=== PATIENT | female | born 1950 | race Caucasian/White ===

== ENCOUNTER 2016-10-22 07:50 | Day surgery (SDC) | payer MEDICARE ==
[~2016-10-22] VITALS: Ht 152.4 cm; Wt 66.5 kg
[~2016-10-22 07:50] MED LIST: APIX5TAB PO; ATEN1TAB75 PO; ATOR1TAB18 PO; CALC600T25 PO; CLON0.5T PO; FLUO40CA PO; FLUT1SPR5 EACH NARE; GABA300C5 PO; HYDR25TA5 PO; POTA-243 PO; PRIN10TA PO; VITA100064 PO; ZANTTAB9 PO
[2016-10-22] MEDS ORDERED: ceFAZolin INJ 1,000 MG VIAL ONE (08:16)
[2016-10-22] MEDS ORDERED: HEPARIN SODIUM - SQ 10,000 UNITS/ML VIAL ONE (08:16)
[2016-10-22] MEDS ORDERED: BUPIVACAINE/EPINEPHRINE 0.5% 50 ML VIAL ONE (08:17)
[2016-10-22] MEDS ORDERED: PROTAMINE SULFATE 50 MG/5 ML VIAL ONE (08:17)
[2016-10-22] MEDS ORDERED: METOPROLOL TARTRATE 25 MG TAB PO PRN (08:30)
[2016-10-22] MEDS ORDERED: CHLORHEXIDINE GLUCONATE 2 % 1 PACK (2 CLOTHS) TOPICAL PRN (08:30)
[2016-10-22] MEDS ORDERED: SODIUM CHLORID 0.9% 500 ML IV PRN (08:30)
[2016-10-22] MEDS ORDERED: INSULIN HUMAN REGULAR 1,000 UNITS/10 ML VIAL SQ PRN (08:30)
[2016-10-22] MEDS ORDERED: LACTATED RINGER'S 1000 ML IV PRN (08:30)
[2016-10-22] MEDS ORDERED: VANCOMYCIN HCL 1000 MG ON-CALL/NS 250 ML IV SCH ×2 (08:30)
[2016-10-22] MEDS ORDERED: POVIDONE IODINE 5% (ANTISEPSIS KIT) 4 APPLICATIONS EACH NARE PRN (08:30)
[2016-10-22 08:43] VITALS: BP 127/52; PULSE 42; RESP 20; TEMP 98.3; O2SAT 98
[2016-10-22 09:06] LABS: AUTOMATED NEUTROPHIL # 6.2 TH/MM3 (1.8-7.7); BASOPHIL # 0.1 TH/MM3 (0-0.2); BASOPHIL % 0.8 % (0.0-2.0); EOSINOPHIL # 0.4 TH/MM3 (0-0.4); EOSINOPHIL % 3.7 % (0.0-4.0); HEMATOCRIT 36.6 % (35.0-46.0); HEMO FLAGS DIFF FINAL; LYMPH % 25.7 % (9.0-44.0); LYMPHOCYTE # 2.6 TH/MM3 (1.0-4.8); MEAN CELL VOLUME 88.6 FL (80.0-100.0); MEAN CORPUSCULAR HGB CONC 32.7 % (32.0-36.0); MONO % 8.7 % (0.0-8.0); NEUT % 61.1 % (16.0-70.0); PLATELET COUNT 229 TH/MM3 (150-450); RED BLOOD COUNT 4.13 MIL/MM3 (4.00-5.30); RED CELL DISTRIBUTION WIDTH 13.5 % (11.6-17.2); WHITE BLOOD COUNT 10.2 TH/MM3 (4.0-11.0)
[2016-10-22 09:15] LABS: APTT (PATIENT) 24.4 SEC (24.3-30.1); INTERNATIONAL NORMALIZED RATIO 0.9 RATIO; PROTHROMBIN TIME - PATIENT 10.2 SEC (9.8-11.6)
[2016-10-22 09:23] LABS: BICARBONATE 25.6 MEQ/L (21.0-32.0); POTASSIUM 3.9 MEQ/L (3.5-5.1)
[2016-10-22] MEDS ORDERED: MIDAZOLAM HCL 2 MG/2 ML VIAL ONE (09:43)
[2016-10-22] MEDS ORDERED: IOHEXOL 300 MG/ML 50 ML BTL (for RAD DIAG) ONE (11:22)
[2016-10-22] MEDS ORDERED: IOHEXOL 300 MG/ML 50 ML BTL (for RAD DIAG) IV ONE (12:00)
[2016-10-22] MEDS ORDERED: KETAMINE HCL 500 MG/5 ML VIAL IV ONE (12:00)
[2016-10-22] MEDS ORDERED: PROPOFOL 200 MG/20 ML AMP IV ONE (12:00)
[2016-10-22] MEDS ORDERED: ePHEDrine/NS 25 MG/5 ML SYR IV ONE (12:00)
[2016-10-22] MEDS ORDERED: SODIUM CHLORID 0.9% 500 ML INJ 500 ML IV ONE (12:00)
[2016-10-22 14:23] VITALS: BP 154/65; PULSE 49; RESP 18; TEMP 97.9; O2SAT 98
[2016-10-22 15:13] VITALS: BP 158/76; PULSE 46; RESP 16; TEMP 97.9; O2SAT 99
--- NOTE | 2016-10-22 16:39 | EKG ---
Date Performed: 10/22/2016 Time Performed: 08:31:08 PTAGE: 65 years EKG: SINUS BRADYCARDIA POSSIBLE RIGHT VENTRICULAR CONDUCTION DELAY NONSPECIFIC T-WAVE ABNORMALIT Y BORDERLINE ECG Compare to prior EKG, previous EKG shows atrial fibrillation. Patient has now conver shannan to Sinus rhythm . PREVIOUS TRACING : 09/07/2015 01.05 DOCTOR: Noble Ayon Interpretating Date/Time 10/22/2016 16:37:36
--- NOTE | 2016-10-24 11:18 | MP ---
cc: TEJA ART M.D. 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 PROCEDURE Aortofemoral arteriogram. SURGEON Teja Art MD ANESTHESIA Local MAC. DESCRIPTION OF THE OPERATIVE PROCEDURE With the patient in the supine position and under IV sedation, the lower abdomen, both groins and thighs were thoroughly prepped with Betadine and draped in a sterile fashion. One gram of vancomycin was administered intravenously and following a protocol time-out, the skin and subcutaneous tissue surrounding the right femoral access site was preemptively infiltrated with 0.5% Marcaine with epinephrine. Utilizing ultrasound guidance, an 18-gauge needle was inserted into the right femoral limb of the aortobifemoral bypass. A J-wire was advanced under fluoroscopic guidance into the right iliac limb and the needle exchanged for a 5-Frisian hemostatic sheath. An Advantage Omni catheter combination was guided into the sub-renal aorta. Utilizing power contrast injection in conjunction with digital C-arm fluoroscopic imaging, complete aortofemoral arteriogram was then accomplished with findings as follows: The "piggyback" aortic anastomosis and aortobifemoral bypass graft were widely patent. The left femoral limb of the bypass graft was a significant diameter mismatch with the anastomosed left common femoral artery. However, the common femoral, bifurcation proximal SFA and profunda did not appear significantly stenosed (despite preoperative duplex suggesting otherwise). On the right side, a focal high-grade stenosis was present within the origin of the SFA. The profunda was quite robust and widely patent. The right superficial femoral artery was diminished in caliber throughout, probably due to the proximal stenosis and resulting distal hypotension within the distal SFA. The popliteal was also smaller in caliber but patent. The anterior tibial was atretic. The tibioperoneal trunk, peroneal and posterior tibial appeared unrestricted with two-vessel perfusion right foot. On the left side, below the femoral bifurcation the SFA and popliteal were normal and unrestricted two-vessel runoff provided by the anterior tibial and posterior tibial to the left foot was documented. The Advantage guidewire was guided over the aortic bifurcation down the left iliac limb of the bypass graft, across the femoral anastomosis into the proximal SFA. A quick-cross catheter was positioned within the proximal SFA. Pullback pressures across the left femoral anastomosis reconfirmed absence of any hemodynamically significant stenosis. Pressure measurements distal, across and proximal to the anastomosis were isosymmetric. The 5-Frisian sheath was removed from the access site and hemostasis achieved with compression. There were no operative complications. The patient returned to the recovery room in stable condition having tolerated the procedure well. Teja Art MD JTS/SSB /4:49 PM /10:56 AM
== END 2016-10-22 18:08 | disposition home or self-care (01) ==
LOC: HCVO 07:50 → HCIN 14:02 → HCVO 18:08
PROVIDERS: ATTEND Surgery Vascular Surgery
DX: I73.9 Peripheral vascular disease, unspecified (principal); I10 Essential (primary) hypertension; E78.5 Hyperlipidemia, unspecified; I25.10 Atherosclerotic heart disease of native coronary artery without angina pectoris; Z95.1 Presence of aortocoronary bypass graft; Z79.01 Long term (current) use of anticoagulants
CPT/HCPCS: 01270; 37226; 75736; 76937; 80048; 85025; 85610; 85730; 86850; 86900; 86901; 86920; 86922; 93005; C1769; J1644; J2250; J2720; J3010; J3370; J7040; J7050; J7120; Q9967; J0690